=== PATIENT | male | born 1950 | race Caucasian/White ===

== ENCOUNTER 2017-09-23 01:55 | Inpatient (IN) | payer MEDICARE, BC ==
[~2017-09-23] VITALS: Ht 182.9 cm; Wt 77.1 kg
--- NOTE | 2017-09-23 02:15 | NUR ---
PT BIBA FROM HOME, AAOX4, ADMITS SCOTCH ALL NIGHT AND ADMITS TAKING AMBIEN TO STOP THE "SHAKES" PT HAS HX OF PARKINSONS, PT DENIES SI/HI BUT STATES "I AM DEPRESSED" DENIESCP/SOB BREATHING EVEN UNLABORED, ABD SOFT NON DISTENDED WITH +BS, DENIES N/V/D/ABD PAIN.SKIN W/D TO TOUCH WITH GOOD SKIN TURGOR.BED IN LOW POSITION,LOCKED ,HOB UP,SR UP X2 FOR SAFETY, FAMILY AT BEDSIDE, CB WITHIN REACH, WILL CONTIUE WITH MD ALENA AT BEDSIDE FOR EVAL.
[2017-09-23 02:51] LABS: BASOPHILS # (AUTO) 0.1 K/uL (0.0-8.0); BASOPHILS % (AUTO) 1.2 % (0.0-2.0); EOSINOPHILS # (AUTO) 0.3 K/uL (0.0-0.7); EOSINOPHILS % (AUTO) 5.2 % (0.0-7.0); HEMOGLOBIN 14.7 g/dL (12.5-16.3); LYMPHOCYTES # (AUTO) 1.6 K/uL (20.0-40.0); LYMPHOCYTES % (AUTO) 31.2 % (20.5-51.5); MEAN CORPUSCULAR HEMOGLOBIN 32.1 uug (23.8-33.4); MEAN CORPUSCULAR HGB CONC 34 g/dL (32.5-36.3); MEAN CORPUSCULAR VOLUME 93.6 fL (73.0-96.2); MONOCYTES # (AUTO) 0.4 K/uL (2.0-10.0); MONOCYTES % (AUTO) 7.1 % (0.0-11.0); NEUTROPHILS # (AUTO) 2.8 K/uL (1.8-8.9); NEUTROPHILS % (AUTO) 55.3 % (38.5-71.5); PLATELET COUNT (AUTO) 260 K/uL (152-348); RED BLOOD CELL COUNT(AUTO) 4.59 MIL/uL (4.06-5.63); WHITE BLOOD COUNT (AUTO) 5.1 K/uL (3.6-10.2)
[2017-09-23 02:55] LABS: ETHANOL 80 MG/DL (0-0)
[2017-09-23 02:59] LABS: ALANINE AMINOTRANSFERASE 27 U/L (16-63); ALKALINE PHOSPHATASE 54 U/L (50-136); ASPARTATE AMINOTRANSFERASE 20 U/L (15-37); BILIRUBIN,DIRECT 0.1 mg/dL (0.0-0.2); BILIRUBIN,TOTAL 0.2 mg/dL (0.2-1.0); CARBON DIOXIDE 28 mmol/L (21-32); CHLORIDE 105 mmol/L (98-107); CREATININE 1.2 mg/dL (0.6-1.3); GLUCOSE 105 mg/dL (74-106); POTASSIUM 4.1 mmol/L (3.5-5.1); TOTAL PROTEIN, SERUM 7.5 g/dL (6.4-8.2); UREA NITROGEN, BLOOD 15 mg/dL (7-18)
[2017-09-23 03:00] LABS: ACETAMINOPHEN < 2.0 ug/mL (10-30)
[2017-09-23 03:08] LABS: THYROID STIMULATING HORMONE 22.517 mIU/mL (0.358-3.740)
[2017-09-23 03:37] LABS: *BILIRUBIN,URIN NEGATIVE (NEGATIVE); *BLOOD, URINE NEGATIVE (NEGATIVE); *COLOR,URINE LIGHT YELLOW (YELLOW); *KETONES,URINE NEGATIVE (NEGATIVE); *PROTEIN,URINE NEGATIVE (NEGATIVE); *UROBILINOGEN,URINE 0.2 E.U./dl (NORMAL); LEUKOCYTE ESTERASE ,URINE TRACE (NEGATIVE); NITRITE, URINE NEGATIVE (NEGATIVE); UGLUCOSE NEGATIVE (NEGATIVE)
[2017-09-23] MEDS ORDERED: TAMS-3 PO (03:37)
[2017-09-23] MEDS ORDERED: CARB1TAB21 (03:37)
[2017-09-23] MEDS ORDERED: LEVO88TA5 PO (03:40)
--- NOTE | 2017-09-23 03:40 | NUR ---
PT AWAKE IN NO DISTRESS, AWAITING ADM BED, FAMILY AT BEDSIDE
[2017-09-23 03:42] LABS: *CLARITY,URINE HAZY (CLEAR)
[2017-09-23 03:45] LABS: *AMPHETAMINE, URINE NEGATIVE (NEGATIVE); *BARBITURATE, URINE NEGATIVE (NEGATIVE); *CANNABINOID, URINE NEGATIVE (NEGATIVE); *COCCAINE, URINE NEGATIVE (NEGATIVE); *OPIATE, URINE NEGATIVE (NEGATIVE); *PHENCYCLIDINE SCREEN,URINE NEGATIVE (NEGATIVE)
[2017-09-23] MEDS ORDERED: LEVOTHYROXINE SODIUM 100 MCG VIAL IV ONE ×3 (03:45→04:00)
[2017-09-23] MEDS ORDERED: CARBIDOPA/LEVODOPA 25-100MG TAB.RAPDIS PO SCH (03:45)
[2017-09-23 03:48] LABS: BACTERIA,URINE NONE SEEN /HPF (NONE SEEN); RBC,URINE NONE SEEN /HPF (0-3); SQUAMOUS EPITHELIAL CELL,UR NONE SEEN /HPF (NONE SEEN)
[2017-09-23 03:49] LABS: URINE AMORPHOUS PHOSPHATES MODERATE /HPF
[2017-09-23] MEDS ORDERED: CARBIDOPA/LEVODOPA 25-100MG TABLET ONE (03:56)
--- NOTE | 2017-09-23 04:07 | NUR ---
PT IN NO DISTRESS,REPORT CALLED, SPOKE TO POLI WELSH
[2017-09-23 04:30] VITALS: BP 136/84
--- NOTE | 2017-09-23 04:45 | NUR ---
RECEIVED PATIENT VIA GURNEY FROM ER WITH FAMILY AT BEDSIDE. PATIENT IS ALERT TO SELF, TELLING FAMILY HE WANTS TO GO HOME NOW. PATIENT HAS SLURRED SPEECH AND IS A POOR HISTORIAN AT THIS TIME, PATIENTS INFORMATION AND HISTORY PROVIDED BY . PATIENT NEEDS FREQUENT REDIRECTION AT THIS TIME. C/O DISCOMFORT IN NECK. REPOSITIONED TO SIDE AND COMFORT. NO RESP. DISTRESS NOTED. VS WNL. PLACED ON TELE ORDERED, SINUS RHYTHM. HEPLOCK INTACT AND PATENT, NOTED TO RIGHT HAND #[id number] GAUGE. CALL LIGHT IN REACH. ALL NEEDS ATTENDED. WILL CONTINUE TO MONITOR AND ASSESS.
[2017-09-23] MEDS ORDERED: MAGNESIUM HYDROXIDE 30 ML LIQUID UDC PO PRN (06:00)
[2017-09-23] MEDS ORDERED: ONDANSETRON 4 MG/2 ML VIAL IV PRN (06:00)
[2017-09-23] MEDS ORDERED: HYDROCODONE/APAP 5-325MG TABLET PO PRN (06:00)
[2017-09-23] MEDS ORDERED: ACETAMINOPHEN 325 MG TABLET PO PRN (06:00)
[2017-09-23] MEDS ORDERED: IV 1/2NS 1000 ML 1,000 ML IV PRN (06:15)
--- NOTE | 2017-09-23 06:15 | NUR ---
PATIENT ASLEEP IN BED. NO S/S OF PAIN OR DISCOMFORT. NO RESP. DISTRESS NOTED. ON TELE SR/SB. IVF INFUSING WELL TO RIGHT HAND ORDERED. ALL NEEDS ATTENDED.
[2017-09-23] MEDS ORDERED: PANTOPRAZOLE SODIUM 40 MG TABLET.DR PO SCH (07:00)
[2017-09-23 07:20] VITALS: BP 138/86
--- NOTE | 2017-09-23 07:47 | NUR ---
patient resting comfortably in bed at this time. a/ox2. complaining of stiff neck pain. 1:1 sitter at bedside for safety at this time. no signs of agitation. will continue to monitor throughout shift. will monitor for signs of alcohol withdrawal.
[2017-09-23] MEDS: CARBIDOPA/LEVODOPA 25-100MG TABLET PO SCH ×2 (08:00→13:17)
[2017-09-23] MEDS ORDERED: THIAMINE HCL 100 MG TABLET PO SCH (09:00)
[2017-09-23] MEDS ORDERED: LEVOTHYROXINE SODIUM 88 MCG TABLET PO SCH (09:00)
[2017-09-23] MEDS ORDERED: MULTIVITAMINS,THERAPEUTIC TABLET PO SCH (09:00)
[2017-09-23] MEDS ORDERED: FOLIC ACID 1 MG TABLET PO SCH (09:00)
[2017-09-23 11:39] VITALS: BP 140/90
--- NOTE | 2017-09-23 13:50 | NUR ---
PATIENT LEFT HOSPITAL AGAINST MEDICAL ADVICE (AMA). EXPLAINED RISKS AND BENEFITS TO PATIENT AND PATIENT'S AND PATIENT AND PATIENT'S STILL WANTED TO LEAVE AGAINST MEDICAL ADVICE. VERBALIZED THAT "I WONT STAY OVERNIGHT, I WANT TO LEAVE NOW. I CAN SEE MY PRIMARY DOCTOR WHEN I GET OUT OF HERE".
[2017-09-23] MEDS ORDERED: DOCUSATE SODIUM 100 MG CAPSULE PO SCH (21:00)
[2017-09-23] MEDS ORDERED: TAMSULOSIN HCL 0.4 MG CAP.SR.24H PO SCH (21:00)
== END 2017-09-23 13:50 | disposition left against medical advice (07) | DRG 917 ==
LOC: ER 02:06 → TELE 03:50
PROVIDERS: ADMIT Internal Medicine; ATTEND Internal Medicine
DX: T51.0X1A Toxic effect of ethanol, accidental (unintentional), initial encounter (principal); G92 Toxic encephalopathy; Y92.019 Unspecified place in single-family (private) house as the place of occurrence of the external cause; E03.9 Hypothyroidism, unspecified; Z91.14 Patient's other noncompliance with medication regimen; F10.10 Alcohol abuse, uncomplicated; Y90.4 Blood alcohol level of 80-99 mg/100 ml; G20 Parkinson's disease; N40.0 Benign prostatic hyperplasia without lower urinary tract symptoms; F29 Unspecified psychosis not due to a substance or known physiological condition
CPT/HCPCS: 36415; 70450; 71045; 80307; 84443; 85025; 85730; 93005; A4217; A4663; G0480; G0480-TC; J3490; J8499

== ENCOUNTER 2022-05-17 16:10 | Emergency (ER) | payer MEDICARE, BC ==
[~2022-05-17] VITALS: Ht 182.9 cm; Wt 77.1 kg
[~2022-05-17 16:10] MED LIST: CARB1TAB21; LEVO88TA5 PO; TAMS-3 PO
--- NOTE | 2022-05-17 16:39 | NUR ---
PT IS IN ROOM #2B. DR DUKE EVALUATED THE PT.
[2022-05-17 16:48] LABS: HEMATOCRIT 39.4 % (36.7-47.1); MEAN CORPUSCULAR HEMOGLOBIN 31.1 uug (23.8-33.4); MEAN CORPUSCULAR VOLUME 93.5 fL (73.0-96.2); PLATELET COUNT (AUTO) 289 K/uL (152-348)
[2022-05-17 17:06] LABS: ALANINE AMINOTRANSFERASE 10 U/L (16-63); ALKALINE PHOSPHATASE 71 U/L (50-136); ASPARTATE AMINOTRANSFERASE 12 U/L (15-37); BILIRUBIN,DIRECT 0.1 mg/dL (0.0-0.2); BILIRUBIN,TOTAL 0.3 mg/dL (0.2-1.0); CARBON DIOXIDE 28 mmol/L (21-32); CHLORIDE 102 mmol/L (98-107); CREATININE 0.8 mg/dL (0.6-1.3); GLUCOSE 104 mg/dL (74-106); POTASSIUM 3.8 mmol/L (3.5-5.1); TOTAL PROTEIN, SERUM 7.3 g/dL (6.4-8.2); UREA NITROGEN, BLOOD 30 mg/dL (7-18)
--- NOTE | 2022-05-17 17:09 | NUR ---
[employer] OFFICERS TALKED TO THE PT.
[2022-05-17 17:14] LABS: ETHANOL 89 MG/DL (0-0)
[2022-05-17 17:20] LABS: ACETAMINOPHEN < 2.0 ug/mL (10-30)
--- NOTE | 2022-05-17 17:30 | NUR ---
CRISIS INSPECTOR PLUMBING ARIK WAS CALLED TO EVALUATE THE PT. ETA IS 1 HOUR.
[2022-05-17 17:34] LABS: *BILIRUBIN,URIN NEGATIVE (NEGATIVE); *BLOOD, URINE NEGATIVE (NEGATIVE); *CLARITY,URINE CLEAR (CLEAR); *COLOR,URINE YELLOW (YELLOW); *KETONES,URINE NEGATIVE (NEGATIVE); *UROBILINOGEN,URINE 0.2 E.U./dl (NORMAL); LEUKOCYTE ESTERASE ,URINE NEGATIVE (NEGATIVE); NITRITE, URINE NEGATIVE (NEGATIVE); UGLUCOSE NEGATIVE (NEGATIVE)
[2022-05-17 18:00] LABS: *AMPHETAMINE, URINE NEGATIVE (NEGATIVE); *CANNABINOID, URINE NEGATIVE (NEGATIVE); *COCCAINE, URINE NEGATIVE (NEGATIVE); *PHENCYCLIDINE SCREEN,URINE NEGATIVE (NEGATIVE)
[2022-05-17] MEDS ORDERED: LORAZEPAM 0.5 MG TABLET PO ONE (19:15)
[2022-05-17] MEDS ORDERED: LORAZEPAM 1 MG TABLET ONE (19:17)
[2022-05-17 19:42] VITALS: BP 128/76
--- NOTE | 2022-05-17 19:42 | NUR ---
Patient discharged to home in stable condition. Written and verbal after care instructions given. Patient verbalizes understanding of instructions. Stressed follow up or return to ER for worsening s/s. Patient is ambulatory with steady gait. accompanied by his
== END 2022-05-17 19:43 | disposition home or self-care (01) ==
LOC: ER 16:10
DX: F10.129 Alcohol abuse with intoxication, unspecified (principal); G20 Parkinson's disease; F10.139 Alcohol abuse with withdrawal, unspecified; Y90.4 Blood alcohol level of 80-99 mg/100 ml; Z79.899 Other long term (current) drug therapy; E03.9 Hypothyroidism, unspecified; Z79.890 Hormone replacement therapy
CPT/HCPCS: 36415; 71045; 85025; A4663; G0480